=== PATIENT | female | born 2000 | race Caucasian/White ===

== ENCOUNTER 2023-05-15 23:45 | Emergency (ER) | payer SELFPAY ==
[~2023-05-15] VITALS: Ht 157.5 cm; Wt 61.2 kg
[2023-05-16 00:21] VITALS: BP_SYST 132; PULSE 100; RESP 16; TEMP 98.4; O2SAT 97
[2023-05-16 02:55] VITALS: BP_SYST 132; PULSE 100; RESP 16; TEMP 98.4; O2SAT 97
== END 2023-05-16 02:45 | disposition home or self-care (01) ==
LOC: SED 23:45
DX: J06.9 Acute upper respiratory infection, unspecified (principal)
CPT/HCPCS: 71045; 99283